=== PATIENT | female | born 1990 | race Caucasian/White ===

== ENCOUNTER 2016-11-13 13:18 | Emergency (ER) | payer MEDICAID, OTHER ==
[~2016-11-13] VITALS: Ht 175.3 cm; Wt 80.2 kg
[2016-11-13 13:28] VITALS: BP 111/63
[2016-11-13] MEDS ORDERED: LIDOCAINE 1%, 20ML ONE (13:48)
[2016-11-13] MEDS ORDERED: LIDOCAINE 1%, 20ML SQ ONE (14:00)
== END 2016-11-13 14:29 | disposition home or self-care (01) ==
LOC: ED 13:47
DX: L02.31 Cutaneous abscess of buttock (principal)
CPT/HCPCS: 10060

== ENCOUNTER 2016-11-15 13:08 | Emergency (ER) | payer MEDICAID ==
[~2016-11-15] VITALS: Ht 175.3 cm; Wt 78.0 kg
[2016-11-15 13:37] VITALS: BP 116/75
[2016-11-15] MEDS ORDERED: LIDOCAINE 1%, 20ML ONE (15:29)
== END 2016-11-15 16:41 | disposition home or self-care (01) ==
LOC: ED 16:35
DX: L02.31 Cutaneous abscess of buttock (principal); F17.200 Nicotine dependence, unspecified, uncomplicated
CPT/HCPCS: 99283

== ENCOUNTER 2016-11-24 16:47 | Emergency (ER) | payer MEDICAID ==
[~2016-11-24] VITALS: Ht 175.3 cm; Wt 77.7 kg
[2016-11-24 19:44] VITALS: BP 108/79
== END 2016-11-24 19:48 | disposition home or self-care (01) ==
LOC: ED 17:58
DX: S37.63XA Laceration of uterus, initial encounter (principal); N93.8 Other specified abnormal uterine and vaginal bleeding; X58.XXXA Exposure to other specified factors, initial encounter; Y93.89 Activity, other specified; Y99.8 Other external cause status; Y92.89 Other specified places as the place of occurrence of the external cause
CPT/HCPCS: 99283

== ENCOUNTER 2017-01-09 17:31 | Emergency (ER) | payer MEDICAID ==
[~2017-01-09] VITALS: Ht 175.3 cm; Wt 72.5 kg
[2017-01-09 17:33] VITALS: BP 106/70
[2017-01-09] MEDS ORDERED: LIDOCAINE 1%, 20ML SQ ONE (18:00)
[2017-01-09] MEDS ORDERED: LIDOCAINE 1%, 20ML ONE (18:14)
[2017-01-09] MEDS ORDERED: METH40TA3 PO (18:20)
[2017-01-09] MEDS ORDERED: AMPH15TA PO (18:20)
== END 2017-01-09 19:16 | disposition home or self-care (01) ==
LOC: ED 19:10
DX: L02.31 Cutaneous abscess of buttock (principal)
CPT/HCPCS: 10060

== ENCOUNTER 2017-02-09 18:22 | Emergency (ER) | payer MEDICAID ==
[~2017-02-09] VITALS: Ht 175.3 cm; Wt 73.5 kg
[~2017-02-09 18:22] MED LIST: AMPH15TA PO; METH40TA3 PO
[2017-02-09 18:29] VITALS: BP 120/77
[2017-02-09] MEDS ORDERED: LIDOCAINE 1%, 20ML ONE (19:17)
[2017-02-09] MEDS ORDERED: LIDOCAINE 1%, 20ML INFIL ONE (19:30)
[2017-02-09] MEDS ORDERED: CEFAZOLIN 1,000 MG IM ONE (19:30)
[2017-02-09] MEDS ORDERED: CEFAZOLIN 1,000 MG ONE (19:39)
== END 2017-02-09 20:22 | disposition home or self-care (01) ==
LOC: ED 20:10
DX: L02.31 Cutaneous abscess of buttock (principal)
CPT/HCPCS: 10060; 96372; 99283; J0690